=== PATIENT | female | born 1985 | race Caucasian/White ===

== ENCOUNTER → 2019-06-21 11:22 | Outpatient (BNVA) | payer SELFPAY | PROVIDERS: Visit Provider Obstetrics & Gynecology | DX: Z34.92 Encounter for supervision of normal pregnancy, unspecified, second trimester (principal) | CPT/HCPCS: 80307; 81003; 85027; 86592; 86762; 86803; 86850; 86900; 87086; 87340 ==

== ENCOUNTER → 2019-07-10 08:56 | Outpatient (BNVA) | payer SELFPAY | PROVIDERS: Visit Provider Obstetrics & Gynecology | DX: O34.219 Maternal care for unspecified type scar from previous cesarean delivery (principal); O09.43 Supervision of pregnancy with grand multiparity, third trimester; Z3A.28 28 weeks gestation of pregnancy | CPT/HCPCS: 76805 ==

== ENCOUNTER → 2019-07-16 10:47 | Outpatient (BNVA) | payer SELFPAY | PROVIDERS: Visit Provider Obstetrics & Gynecology | DX: O09.43 Supervision of pregnancy with grand multiparity, third trimester (principal); O26.893 Other specified pregnancy related conditions, third trimester; Z3A.28 28 weeks gestation of pregnancy | CPT/HCPCS: 82950; 84315 ==

== ENCOUNTER → 2019-07-27 11:30 | Outpatient (BNVA) | payer SELFPAY | PROVIDERS: Visit Provider Obstetrics & Gynecology | DX: O09.43 Supervision of pregnancy with grand multiparity, third trimester (principal) | CPT/HCPCS: 81003; 87491; 87591 ==

== ENCOUNTER → 2019-08-09 15:21 | Outpatient (BNVA) | payer SELFPAY | PROVIDERS: Visit Provider Obstetrics & Gynecology | DX: Z34.90 Encounter for supervision of normal pregnancy, unspecified, unspecified trimester (principal) | CPT/HCPCS: 81003 ==

== ENCOUNTER → 2019-08-27 09:21 | Outpatient (BNVA) | payer SELFPAY | PROVIDERS: Visit Provider Obstetrics & Gynecology | DX: O09.43 Supervision of pregnancy with grand multiparity, third trimester (principal); O34.219 Maternal care for unspecified type scar from previous cesarean delivery; O26.893 Other specified pregnancy related conditions, third trimester; Z67.91 Unspecified blood type, Rh negative | CPT/HCPCS: 81000 ==

== ENCOUNTER → 2019-09-10 12:52 | Outpatient (BNVA) | payer SELFPAY | PROVIDERS: Visit Provider Obstetrics & Gynecology Female Pelvic Medicine and Reconstructive Surgery | DX: O09.43 Supervision of pregnancy with grand multiparity, third trimester (principal); O34.219 Maternal care for unspecified type scar from previous cesarean delivery; O26.893 Other specified pregnancy related conditions, third trimester; Z67.91 Unspecified blood type, Rh negative | CPT/HCPCS: 84315; 87081 ==

== ENCOUNTER → 2019-09-24 12:54 | Outpatient (BNVA) | payer SELFPAY | PROVIDERS: Visit Provider Obstetrics & Gynecology | DX: O09.43 Supervision of pregnancy with grand multiparity, third trimester (principal) | CPT/HCPCS: 81000 ==

== ENCOUNTER 2019-09-27 06:00 | Inpatient (IN) | payer SELFPAY ==
[2019-09-27] VITALS (28 sets, daily range): BP systolic 0–124; BP diastolic 0–81; PULSE 57–97; RESP 15–18; TEMP 36.4–36.7; O2SAT 96–100; BMI 45.3
[2019-09-27 06:20] LABS: Basophils % 0.3 %; Eosinophils # 0.1 10^3/uL (0.0-0.8); Eosinophils % 1.1 %; Hematocrit 37.6 % (37.0-47.0); Hemoglobin 12.5 g/dL (11.5-15.3); Lymphocytes # 1.5 10^3/uL (0.8-4.8); Lymphocytes % 23.2 %; Mean Corpuscular HGB Conc 33.2 g/dL (30.0-36.0); Mean Corpuscular Hemoglobin 30.2 pg (28.0-34.0); Mean Corpuscular Volume 90.8 fL (81-99); Mean Platelet Volume 9.6 fL (7.4-10.4); Monocytes # 0.6 10^3/uL (0.2-0.9); Monocytes % 8.6 %; Neutrophils # 4.4 10^3/uL (1.8-7.7); Neutrophils % 66.6 %; Nucleated Red Blood Cells % 0 %; Platelet Count 222 10^3/cmm (130-400); Red Blood Count 4.14 10^6/uL (4.1-5.3); Red Cell Distribution Width 13.5 % (12.1-15.1); White Blood Count 6.6 10^3/uL (4.0-10.0)
--- NOTE | 2019-09-27 07:14 | W.PM.OPSUD ---
Surgery/Procedure H&P Update DATE OF PROCEDURE: September 27, 2019 DATE H&P PERFORMED: 09/24/19 H&P UPDATE INFORMATION: I have reviewed H&P completed within last 30 days, I have examined patient prior to procedure, No changes to prior documentation and H&P is in [facility] EMR on date indicated PREOP DIAGNOSIS: Previous section, at 39-0/7 weeks gestation PLANNED PROCEDURE: Operation Date: 09/27/19 07:00 Proposed Procedures p Section Repeat 06142 Z34.90 Z98.891(Not Applicable) - Yunior Miranda MD
[2019-09-27] MEDS: famotidine 20 mg/2 mL INJ IVP (07:15)
[2019-09-27] MEDS: metoclopramide 5 mg/mL SDV 2 mL 10 MG IVP (07:15)
[2019-09-27] MEDS: citric acid-sodium citrate 30 mL UDC PO (07:15)
--- NOTE | 2019-09-27 07:29 | P.ANESASSM_ITS ---
Pre-Anesthetic Assessment Pre-Anesthetic Assessment: Height/Weight: Height 1.55 m Weight 108.862 kg Temp Pulse Resp BP 97.8 F 80 18 119/69 09/27/19 05:48 09/27/19 07:15 09/27/19 05:48 09/27/19 07:15 Preop Diagnosis: Previous section, at 39-0/7 weeks gestation Proposed Procedure: Operation Date: 09/27/19 07:00 Proposed Procedures p Section Repeat 91392 Z34.90 Z98.891(Not Applicable) - Yunior Miranda MD Was Beta Annabel taken within 24 hours: N/A Last intake: Intake Last Liquid Date 09/27/19 Last Liquid Time 04:00 Last Solid Date 09/26/19 Last Solid Time 22:00 Last Intake: 04:00 Social: Social History: No alcohol and No tobacco Exam: Pre-Anes Outpt Exam: alert, oriented x 3, clear to auscultation bilaterally and regular rate & rhythm Airway: Submandibular: WNL Cervical ROM: WNL MP: 2 Dentition: False Pulmonary: Pulmonary: None reported CV/HEM: CV/HEM: None reported : : None reported Hepatic: Hepatic: None reported GI: GI: None reported Metabolic: Metabolic: None reported Musc/skel: Musc/skel: None reported Neuropsych: Neuropsych: None reported Anesthetic Plan: ASA status: 2 Anesthesia: Anesthesia Evaluation, Eval. for regional block and Regional (specify below) (SAB) Risk of > 500 ml blood loss (7ml/kg in children): Yes, adequate IV access and fluids planned Meds/Allergies Current Medications: Current Medications Generic Name Dose Route Start Last Admin Trade Name Rikiq PRN Reason Stop Dose Admin Metoclopramide HCl 10 mg 09/27/19 05:49 09/27/19 07:15 Reglan IVP 09/28/19 05:49 10 mg Q5M PRN Administration Nausea unrelieved by Ken [facility] Anesthesia PFSH: Social History Smoking and tobacco status: never smoked Alcohol intake: never Substance/Drug Use: never Additional social history: Well balanced diet Female Reproductive History: Date of last menstrual period: 12/28/18 : 7 Data Anesthesia CBC & Chem 7: 04/23/20 06:07 Other Labs: Laboratory Results - last 48 hr 09/27/19 09/27/19 06:07 06:07 WBC 6.6 RBC 4.14 Hgb 12.5 Hct 37.6 MCV 90.8 MCH 30.2 MCHC 33.2 RDW 13.5 Plt Count 222 MPV 9.6 Neut % (Auto) 66.6 Lymph % (Auto) 23.2 [place] % (Auto) 8.6 Eos % (Auto) 1.1 Baso % (Auto) 0.3 Neut # (Auto) 4.4 Lymph # (Auto) 1.5 [place] # (Auto) 0.6 Eos # (Auto) 0.1 Baso # (Auto) 0.0 Nucleated RBC % (auto) 0 Nucleated RBCs # 0.0 Blood Type A Negative Rho(D) Type Negaive Cardiac Studies: No Data to Display
--- NOTE | 2019-09-27 09:14 | P.OP_ITS ---
Operative Report Date of procedure: September 27, 2019 Pre-op Diagnosis: 1. Prior section x3 2. at 39-0/7 weeks gestation 3. Grand multiparity 4. Late entry care at 25 weeks gestation 5. Maternal obesity Post-op Diagnosis: 1. Prior section x3 2. at 39-0/7 weeks gestation 3. Grand multiparity 4. Late entry care at 25 weeks gestation 5. Maternal obesity 6. Viable female infant Procedure Done: Repeat low transverse section Specimens removed/disposition: None Surgeon: Yunior Miranda Marketing Communications Coordinator: None Anesthesia: Other (Spinal) Estimated blood loss (mL): 600 IV fluids (mL): 800 Urine output (mL): 500 Complications: None Findings: 1. Viable female infant, cephalic presentation, weighing 8 pounds 0 ounces (3630 g) with a length of 20-1/2 inches and Apgars of 8 at 1 minute and 9 at 5 minutes. 2. Normal-appearing placenta with a true knot present in the cord. 3. Normal-appearing uterus, tubes, and ovaries. 4. Bladder was densely adherent high on the lower uterine segment. 5. Skin incision: 08:11. Uterine incision: 08:19. Delivery: 08:21. Brief History: Patient is a 34-year-old white female 7, para 4-0-2-4 with an LMP of 12/28/2018 and an EDC of 10/04/2019 based on LMP and consistent with a 28-week ultrasound, which placed her at 39-0/7 weeks gestation today. Patient has had 3 prior sections and was not considered a candidate. As a result, she was presenting for a repeat section. Procedure: Patient was taken to the operating room where spinal anesthesia was obtained. Patient was placed in a dorsal supine position with a leftward tilt. Due to the pannus, abdomen was taped, exposing the lower area of the abdomen. She was prepped and draped in the usual sterile fashion. Kelly catheter and sequential compression boots had been placed prior to starting the case. A Pfannenstiel skin incision was made with a knife through the patient's prior scar and carried down to the underlying fascia with the knife. Fascia was incised in the midline with the knife and extended laterally with Brownlee scissors. Superior aspect of the fascia was grasped with Juan Antonio clamps, elevated, and sharply dissected. The fascia was densely adherent to the underlying muscles. The inferior aspect of the fascia was grasped with Juan Antonio clamps, elevated, and sharply and bluntly dissected. The rectus muscles were in the midline. Peritoneum was sharply entered. Peritoneal incision was extended both superiorly and inferiorly with good visualization of the bladder. Bladder blade was inserted. The bladder was noted to be densely adherent high on the lower uterine segment. As a result, decision was made not to attempt a bladder flap. A transverse incision was made with the knife at the transition of the lower uterine segment to the main body of the uterus. Copious amounts of clear fluid was obtained upon entry into the uterine cavity. The infant was initially cephalic, but as the uterus contracted after rupturing membranes, the baby rotated into a transverse back down lie with the head to the maternal left. The head was identified by intrauterine palpation and brought back to the uterine incision, rotating the baby. The 's head was delivered and no nuchal cords were noted. The rest of the delivered atraumatically. Nose and mouth were suctioned with bulb suction. Cord was clamped and cut and the was handed off to Dr. Smith and the waiting nurses. 1 true knot was noted in the cord. Cord blood was obtained. Placenta was delivered via uterine massage. Patient received 20 units of Pitocin in the IV fluids. The uterus was exteriorized and cleared of clots and debris. The uterine incision was closed in a running locking fashion using 0 Vicryl suture. The incision was imbricated using 0 Vicryl suture in a horizontal mattress fashion. The incision was inspected and noted to be hemostatic. Posterior cul-de-sac was thoroughly irrigated and cleared of clots and blood. The uterus was returned to the abdomen. The uterine incision was irrigated and noted to be hemostatic. The gutters were cleared of clots and blood. The rectus muscles and peritoneum were reapproximated in the midline using interrupted stitches of 2-0 Vicryl suture. The muscle layer was irrigated and noted to be hemostatic. The fascia was reapproximated using 0 Vicryl suture in a running fashion. The subcutaneous layer was irrigated and brought to hemostasis using electrocautery. It was reapproximated using 3-0 plain suture in an interrupted fashion. Skin was reapproximated using 4-0 Vicryl suture in a subcuticular fashion. Steri-Strips were applied. Patient tolerated the procedures well. Sponge, needle, and instrument counts were correct. DRAINS: Kelly catheter POSTOPERATIVE STATUS: The patient was left to recover in satisfactory condition
[2019-09-27] MEDS: dextrose 5%-lactated ringers 1,000 ML 125 ML IV (14:31)
[2019-09-27] MEDS: lanolin oint 7 gm 1 APPLIC TOPICAL (14:31)
[2019-09-27] MEDS: ketorolac 30 mg/mL INJ IVP (14:32)
[2019-09-27] MEDS: nystatin powder 15 gm Btl 1 APPLIC TOPICAL (18:26)
[2019-09-27] MEDS: docusate sodium 100 mg Capsule PO (18:26)
[2019-09-28 04:00] VITALS: BP 112/69; PULSE 88; RESP 16; TEMP 36.8
[2019-09-28 06:40] LABS: Hematocrit 36.3 % (37.0-47.0); Hemoglobin 12.1 g/dL (11.5-15.3); Mean Corpuscular HGB Conc 33.3 g/dL (30.0-36.0); Mean Corpuscular Hemoglobin 30.9 pg (28.0-34.0); Mean Corpuscular Volume 92.6 fL (81-99); Mean Platelet Volume 9.4 fL (7.4-10.4); Platelet Count 197 10^3/cmm (130-400); Red Blood Count 3.92 10^6/uL (4.1-5.3); Red Cell Distribution Width 13.9 % (12.1-15.1); White Blood Count 7.5 10^3/uL (4.0-10.0)
--- NOTE | 2019-09-28 08:26 | PM.PN ---
Subjective Subjective: Interval history: Denies any problems or concerns at this time. States pain had been controlled yesterday, but hurting more today. Has not taken anything for pain other than the scheduled Motrin. Reports tolerating regular diet this morning. Reports passing flatus during the night. Denies problems with urination. Denies shortness of breath or chest pains. Denies lightheadedness or dizziness with ambulation. Requesting to go home today if possible. Vitals/I&O/Wt Last Vital Signs Temp 98.3 F 09/28/19 04:00 Pulse 88 09/28/19 04:00 Resp 16 09/28/19 04:00 BP 112/69 09/28/19 04:00 Pulse Ox 96 09/27/19 10:20 09/27/19 09/28/19 09/28/19 22:59 06:59 14:59 Intake Total 2400 / 3250 Output Total 900 / 2700 900 / 3600 Balance 1500 / 550 -900 / -350 Weight last 48 hrs Weight 240 lb Physical Exam Const: COMMON NORMALS: no apparent distress, average body habitus, alert and well nourished GENERAL APPEARANCE: well developed ORIENTATION/CONSCIOUSNESS: Yes oriented to person, Yes oriented to place and Yes oriented to time Resp: COMMON NORMALS: normal respiratory effort and clear to auscultation bilaterally AUSCULTATION: clear to auscultation bilaterally Cardio: COMMON NORMALS: regular rate, regular rhythm, no gallops, no murmurs and no rub RATE: regular rate RHYTHM: regular rhythm PERIPHERAL PULSES: posterior tibial pulses present GI: COMMON NORMALS: soft to palpation, no hepatosplenomegaly and no masses (Except for mildly tender uterus, approximately 2 fingerbreadths below the umbilicus.) AUSCULTATION: Yes normoactive bowel sounds PALPATION: Yes soft, Yes tender (Lower abdomen), Yes no hepatosplenomegaly and No hernia : EXTERNAL FEMALE EXAM: No hernia Extremity: COMMON NORMALS: no calf tenderness NARRATIVE EXTREMITY EXAM: Varicose veins present of the legs. Trace to 1+ lower extremity edema. Neuro: SENSORIUM/ORIENTATION: Yes alert, Yes oriented to person, Yes oriented to place and Yes oriented to time Psych: COMMON NORMALS: affect normal MOOD & AFFECT: Yes euthymic mood Skin: NARRATIVE SKIN EXAM: Erythema of the skin consistent with yeast under the pannus. Urinary Catheter Management^: Kelly Latex: Cath Placed During This Visit: yes Reason for Continuing Indwelling Catheter: Perioperative Use in Selected Surgeries Urinary Catheter Date of Insertion: 09/27/19 Urinary Catheter Time of Insertion: 08:05 Data : 09/28/19 06:20 A&P Assessment and plan (1) Previous delivery, delivered: Postoperative day 1, status post repeat section. He had had 3 prior sections and was not considered a candidate. Increase activities today. Patient may shower. Kelly catheter has been removed. IV has been converted to a PIID. Pain medication use discussed with patient. Discussed that if necessary she should take the pain medication. Importance of being up and moving discussed. Discussed with patient the potential of going home this afternoon depending upon how she does through the morning. Discharge instructions were discussed with her. Questions were answered. Will reassess this afternoon for possible discharge. Status: Acute (2) Rh negative, delivered, current hospitalization: Baby was A negative. Patient does not need RhoGam. Status: Acute (3) Skin yeast infection: Patient had a yeast infection of the skin under her pannus noted at admission. She has been started on Nystatin powder, to be applied to the area twice a day. Status: Acute Attestations Medical Necessity Statement*: This is her first day after repeat section. Coding Level of Care Code Acute I O Psychologist for [place] Fwd Diagnoses Previous delivery, delivered O34.219 Rh negative, delivered, current hospitalization O26.899; Z67.91 Skin yeast infection B37.2
[2019-09-28] MEDS: nystatin powder 15 gm Btl 1 APPLIC TOPICAL (08:59)
[2019-09-28] MEDS: docusate sodium 100 mg Capsule PO (08:59)
[2019-09-28 10:05] VITALS: BP 105/69; PULSE 86; RESP 16; TEMP 36.8
--- NOTE | 2019-09-28 14:27 | P.DS_ITS ---
Discharge Providers Date of Admission: 09/27/19 06:00 Date of Discharge: September 28, 2019 Attending Provider at Admission: Yunior Miranda MD Attending Provider at Discharge: Yunior Miranda MD Diagnoses at Discharge Discharge Diagnosis (1) Previous delivery, delivered: Status: Acute (2) Rh negative, delivered, current hospitalization: Status: Acute (3) Skin yeast infection: Status: Acute Reason for Visit Reason for Visit: Reason For Visit: Currenty history of c section Hospital Course Hospital Course: Patient is a 34-year-old white female 7, now para 5-0-2-5 with an LMP of 12/28/2018 and an EDC of 10/04/2019 based on LMP and consistent with a 28-week ultrasound, which placed her at 39-0/7 weeks gestation at the time of admission. Patient was admitted for a repeat section due to having had 3 prior sections. She was not considered a candidate. She delivered a viable female weighing 8 lbs 0 oz (3630 g) with a length of 20-1/2 inches and Apgars of 8 at 1 minute and 9 at 5 minutes. She did well following the surgery. She received Duramorph in the spinal and was started on scheduled Toradol and then switch to ibuprofen. On postoperative day 1, she reported doing well. She stated that her pain is been well controlled the previous day. She had been started on ibuprofen last night and feels like it is adequately controlling her pain. She had not used any of the narcotic pain medication and was not requesting any. She was ambulating without lightheadedness or dizziness. She was tolerating a regular diet without nausea or vomiting. She denied any shortness of breath or chest pains. She was urinating without difficulty. She was requesting to go home. She did well during the morning and early afternoon and was then discharged to home. Written instructions were provided. She was to follow-up in the office in 2 and 6 weeks following the surgery. She had also been noted to have yeast infection of the skin under her pannus noted when she had her section. She was started on topical nystatin and was to continue this after going home. Physical Exam Urinary Catheter Management^: Kelly Latex: Cath Placed During This Visit: yes Reason for Continuing Indwelling Catheter: Perioperative Use in Selected Surgeries Urinary Catheter Date of Insertion: 09/27/19 Urinary Catheter Time of Insertion: 08:05 Discharge Data Data Completed and Pending: Labs from last 24 hours 09/28/19 06:20 WBC 7.5 RBC 3.92 L Hgb 12.1 Hct 36.3 L MCV 92.6 MCH 30.9 MCHC 33.3 RDW 13.9 Plt Count 197 MPV 9.4 Vitals: Last Vital Signs Temp 98.2 F 09/28/19 10:05 Pulse 86 09/28/19 10:05 Resp 16 09/28/19 10:05 BP 105/69 09/28/19 10:05 Pulse Ox 96 09/27/19 10:20 Discharge Plan Discharge Patient Disposition: Home, Self-Care Condition: Stable Prescriptions: New Nyamyc 100,000 unit/gram Powder 1 applic topical BID Qty: 30 RF: 0 Continued prenat.vits,freddie,[id number]-qqqrb Tablet 1 tab PO DAILY RF: 0 calcium carbonate 600 mg PO PRN RF: 0 Discontinued ferrous sulfate 325 mg PO BID RF: 0 Discharge Orders: Discharge Order (Routine); Ordered 09/28/19 Ordered By: Yunior Miranda Referrals: Yunior Miranda MD [Physician] - 2 weeks (Please call [facility] on Tuesday October 01, 2019 first thing in the morning, at [phone] to schedule your 2 week incision check appointment and your [address] Miranda.) Discharge Diet: Regular Discharge Activity: Limit activity as instructed Patient Instructions: Iron Supplements (By mouth), Vitamins (By mouth), Multivitamins with Minerals (By mouth), OB [facility], OB Discharge Report, OB Food/Drug Interaction Guide, OB Care at Home, OB Home Care, OB [facility] Parent Packet Discharge Attestations Time Spent in Discharge Care*: less than 30 min Quality Metrics Clinical Quality Measures During this hospital stay, did patient experience: None Coding Level of Care Code Acute Mushroom Packer for Chg Fwd Diagnoses Previous delivery, delivered O34.219 Rh negative, delivered, current hospitalization O26.899; Z67.91 Skin yeast infection B37.2
[2019-09-28 14:54] VITALS: BP 110/74; PULSE 80; RESP 16; TEMP 36.6
== END 2019-09-28 15:50 | disposition home or self-care (01) | DRG 787 ==
LOC: OPOB 08:14
PROVIDERS: Admitting Provider Obstetrics & Gynecology; Visit Provider Obstetrics & Gynecology
PROC: 10D00Z1 Extraction of Products of Conception, Low, Open Approach (ICD-10-PCS; CPT 59514; principal; 2019-09-27 07:00)
DX: O34.211 Maternal care for low transverse scar from previous cesarean delivery (principal); O98.82 Other maternal infectious and parasitic diseases complicating childbirth; N85.8 Other specified noninflammatory disorders of uterus; Z3A.39 39 weeks gestation of pregnancy; Z37.0 Single live birth; B37.2 Candidiasis of skin and nail; O99.214 Obesity complicating childbirth; O69.81X0 Labor and delivery complicated by cord around neck, without compression, not applicable or unspecified
CPT/HCPCS: 12345; 36415; 59025; 85025; 85027; 86900; 96375; J0690; J1885; J2274; J2405; J2590; J2765; J3490; J7030

== ENCOUNTER → 2020-09-23 09:05 | Outpatient (BNVA) | payer SELFPAY | PROVIDERS: Visit Provider Obstetrics & Gynecology | DX: Z32.00 Encounter for pregnancy test, result unknown (principal) | CPT/HCPCS: 81025 ==

== ENCOUNTER → 2020-09-30 14:53 | Outpatient (BNVA) | payer SELFPAY | PROVIDERS: Visit Provider Obstetrics & Gynecology | DX: O09.32 Supervision of pregnancy with insufficient antenatal care, second trimester; Z3A.00 Weeks of gestation of pregnancy not specified | CPT/HCPCS: 80307; 81000; 82950; 85027; 86592; 86762; 86803; 86850; 86900; 87086; 87340; 87491; 87591; 88175 ==

== ENCOUNTER → 2020-10-08 13:06 | Outpatient (BNVA) | payer SELFPAY | PROVIDERS: Visit Provider Obstetrics & Gynecology | DX: Z34.92 Encounter for supervision of normal pregnancy, unspecified, second trimester (principal) | CPT/HCPCS: 76805 ==

== ENCOUNTER → 2020-10-27 08:08 | Outpatient (BNVA) | payer SELFPAY | PROVIDERS: Visit Provider Obstetrics & Gynecology | DX: O09.43 Supervision of pregnancy with grand multiparity, third trimester (principal) | CPT/HCPCS: 84315; 85027; 86850 ==

== ENCOUNTER → 2020-11-10 08:56 | Outpatient (BNVA) | payer SELFPAY | PROVIDERS: Visit Provider Obstetrics & Gynecology | DX: O09.43 Supervision of pregnancy with grand multiparity, third trimester (principal); Z3A.00 Weeks of gestation of pregnancy not specified | CPT/HCPCS: 81000 ==

== ENCOUNTER → 2020-11-24 09:28 | Outpatient (BNVA) | payer SELFPAY | PROVIDERS: Visit Provider Obstetrics & Gynecology | DX: O09.43 Supervision of pregnancy with grand multiparity, third trimester (principal); Z3A.00 Weeks of gestation of pregnancy not specified | CPT/HCPCS: 81000 ==

== ENCOUNTER → 2020-12-10 11:21 | Outpatient (BNVA) | payer SELFPAY | PROVIDERS: Visit Provider Nurse Practitioner Women's Health | DX: O09.43 Supervision of pregnancy with grand multiparity, third trimester (principal); Z67.91 Unspecified blood type, Rh negative; O34.219 Maternal care for unspecified type scar from previous cesarean delivery; Z3A.00 Weeks of gestation of pregnancy not specified | CPT/HCPCS: 81000 ==

== ENCOUNTER → 2020-12-22 08:59 | Outpatient (BNVA) | payer SELFPAY | PROVIDERS: Visit Provider Obstetrics & Gynecology | DX: O09.43 Supervision of pregnancy with grand multiparity, third trimester (principal); O34.219 Maternal care for unspecified type scar from previous cesarean delivery; Z3A.00 Weeks of gestation of pregnancy not specified; Z67.91 Unspecified blood type, Rh negative | CPT/HCPCS: 81000; 87081 ==

== ENCOUNTER → 2020-12-31 10:59 | Outpatient (BNVA) | payer SELFPAY | PROVIDERS: Visit Provider Nurse Practitioner Women's Health | DX: O09.43 Supervision of pregnancy with grand multiparity, third trimester (principal); Z3A.00 Weeks of gestation of pregnancy not specified | CPT/HCPCS: 81000 ==

== ENCOUNTER → 2021-01-05 08:46 | Outpatient (BNVA) | payer SELFPAY | PROVIDERS: Visit Provider Obstetrics & Gynecology | DX: O09.43 Supervision of pregnancy with grand multiparity, third trimester (principal); Z3A.00 Weeks of gestation of pregnancy not specified | CPT/HCPCS: 81000 ==

== ENCOUNTER 2021-01-12 05:19 | Inpatient (IN) | payer SELFPAY ==
--- NOTE | 2020-12-31 14:07 | ANES.PREANE2 ---
Pre-Anesthetic Assessment Pre-Anesthetic Assessment: Height/Weight: Height 1.55 m Preop Diagnosis: Previous section, at 39-0/7 weeks gestation Proposed Procedure: Operation Date: 01/12/21 07:00 Proposed Procedures p Section Repeat 45948 O34.219 O09.43(Not Applicable) - Vaughn Honeycutt MD Was Beta Annabel taken within 24 hours: N/A Was Clonidine taken within 24 hours: N/A Social: Social History: No alcohol and No tobacco Exam: Pre-Anes Outpt Exam: alert, oriented x 3, clear to auscultation bilaterally and regular rate & rhythm Airway: Submandibular: WNL Cervical ROM: WNL MP: 2 Dentition: False History/ROS: No significant history except as noted Anesthetic Plan: ASA status: 2 Anesthesia: Regional (specify below) (SAB) Risk of > 500 ml blood loss (7ml/kg in children): No PFSH Anesthesia PFSH: Medical History No active medical problems Surgical History S/P section (12/24/15) [place]formed [place] (12/03/16) [place]formed [place] S[place] section (06/21/18) Performed in [place] S/P section (09/27/19) RLTCS. Performed by Dr. Miranda at [facility] in [place], [place]. Family History Grandfather Heart disease paternal Denies family history of Colon cancer Ovarian cancer Diabetes Clotting disorder Hyperlipidemia Breast cancer Anesthesia complication Bleeding disorder Hypertension Uterine cancer Thyroid condition Stroke Social History Smoking and tobacco status: never smoked Alcohol intake: never Female Reproductive History: Date of last menstrual period: 12/28/18 Data Anesthesia Cardiac Studies: No Data to Display
[2021-01-12] VITALS (24 sets, daily range): BP systolic 97–116; BP diastolic 58–75; PULSE 58–80; RESP 12–18; TEMP 36.2–36.8; O2SAT 96–100; BMI 46.8
[2021-01-12] MEDS: lactated ringers 1,000 ML 999 ML IV (06:04)
[2021-01-12 06:14] LABS: Basophils % 0.4 %; Eosinophils # 0.2 10^3/uL (0.0-0.8); Hematocrit 37.7 % (37.0-47.0); Hemoglobin 12.3 g/dL (11.5-15.3); Lymphocytes # 1.7 10^3/uL (0.8-4.8); Lymphocytes % 24.4 %; Mean Corpuscular HGB Conc 32.6 g/dL (30.0-36.0); Mean Corpuscular Hemoglobin 30.2 pg (28.0-34.0); Mean Corpuscular Volume 92.6 fL (81-99); Monocytes # 0.6 10^3/uL (0.2-0.9); Monocytes % 7.7 %; Neutrophils # 4.56 10^3/uL (1.8-7.7); Neutrophils % 64.2 %; Nucleated Red Blood Cells % 0 %; Platelet Count 195 10^3/cmm (130-400); Red Blood Count 4.07 10^6/uL (4.1-5.3); Red Cell Distribution Width 13.4 % (12.1-15.1); White Blood Count 7.1 10^3/uL (4.0-10.0)
[2021-01-12 06:22] LABS: Amphetamines Screen Urine Negative (Negative); Barbiturates Screen Urine Negative (Negative); Benzodiazepines Screen Urine Negative (Negative); Cocaine Screen Urine Negative (Negative); Opiate Screen Urine Negative (Negative); PCP Screen Urine Negative (Negative); THC Screen Urine Negative (Negative)
[2021-01-12 06:31] LABS: Anion Gap 16.2 (5-19); Blood Urea Nitrogen 5 mg/dL (6-20); Calcium 8.5 mg/dL (8.5-10.5); Carbon Dioxide 22 mmol/L (22-29); Chloride 106 mmol/L (98-107); Glomerular Filtration Rate 256.2 mL/min (90-130); Glucose 82 mg/dL (65-115); Osmolality Calculated 286 mOsm/kg (285-295); Potassium 4.2 mmol/L (3.5-5.1); Sodium 140 mmol/L (136-145)
--- NOTE | 2021-01-12 06:45 | P.ANESUD_ITS ---
Pre-Anesthetic Update Pre-Anesthetic Assessment: Date of Surgery/Procedure: 01/12/21 Preop Corry gnosis: Previous section, at 39-0/7 weeks gestation Proposed Procedure: Operation Date: 01/12/21 07:00 Proposed Procedures p Section Repeat 17677 O34.219 O09.43(Not Applicable) - Vaughn Honeycutt MD Any changes to Pre-Anesthetic Assessment?: No Last Intake: Intake Last Liquid Date 01/12/21 Last Liquid Time 00:00 Last Solid Date 01/11/21 Last Solid Time 18:00 Labs Last 48hrs: Laboratory Results - last 48 hr 01/12/21 01/12/21 01/12/21 05:50 05:50 05:50 WBC 7.1 RBC 4.07 L Hgb 12.3 Hct 37.7 MCV 92.6 MCH 30.2 MCHC 32.6 RDW 13.4 Plt Count 195 MPV 10.0 Neut % (Auto) 64.2 Lymph % (Auto) 24.4 [place] % (Auto) 7.7 Eos % (Auto) 3.0 Baso % (Auto) 0.4 Neut # (Auto) 4.56 Lymph # (Auto) 1.7 [place] # (Auto) 0.6 Eos # (Auto) 0.2 Baso # (Auto) 0.0 Nucleated RBC % (a uto) 0 Nucleated RBCs # 0.0 Sodium 140 Potassium 4.2 Chloride 106 Carbon Dioxide 22 Anion Gap 16.2 BUN 5 L Creatinine 0.3 L GFR Calculation 256.2 H Glucose 82 Calculated Osmolal ity 286 Calcium 8.5 Urine Opiates Scre en Ur Barbiturates Sc reen Ur Phencyclidine S crn Ur Amphetamines Sc reen U Benzodiazepines Scrn Urine Cocaine Scre en U Marijuana (THC) Screen Blood Type A Negative Rho(D) Type Negative / 0 01/12/21 05:50 WBC RBC Hgb Hct MCV MCH MCHC RDW Plt Count MPV Neut % (Auto) Lymph % (Auto) [place] % (Auto) Eos % (Auto) Baso % (Auto) Neut # (Auto) Lymph # (Auto) [place] # (Auto) Eos # (Auto) Baso # (Auto) Nucleated RBC % (a uto) Nucleated RBCs # Sodium Potassium Chloride Carbon Dioxide Anion Gap BUN Creatinine GFR Calculation Glucose Calculated Osmolal ity Calcium Urine Opiates Scre en Negative Ur Barbiturates Sc reen Negative Ur Phencyclidine S crn Negative Ur Amphetamines Sc reen Negative U Benzodiazepines Scrn Negative Urine Cocaine Scre en Negative U Marijuana (THC) Screen Negative Blood Type Rho(D) Type Vitals: Temperature 97.2 F L 01/12/21 06:56 Pulse Rate 80 01/12/21 06:51 Pulse Rhythm 01/12/21 05:31 Pulse Strength 3+ Normal 01/12/21 05:31 Respiratory Effort Non-Labored 01/12/21 05:31 Respiratory Depth Normal 01/12/21 05:31 Respiratory Patter n 01/12/21 05:31 Blood Pressure 101/65 01/12/21 06:51 Oxygen Delivery Me thod 01/12/21 05:31 Exam: Pre-Anes Outpt Exam: alert, oriented x 3, clear to auscultation bilaterally and regular rate & rhythm Cardiac Studies: No Data to Display
[2021-01-12] MEDS: lactated ringers 1,000 ML 125 ML IV (06:52)
[2021-01-12] MEDS: metoclopramide 5 mg/mL SDV 2 mL 10 MG IVP (06:53)
[2021-01-12] MEDS: citric acid-sodium citrate 30 mL UDC PO (06:53)
[2021-01-12] MEDS: famotidine 20 mg/2 mL INJ IVP (06:53)
--- NOTE | 2021-01-12 08:50 | PM.OP ---
Operative Report Date of procedure: January 12, 2021 Pre-op Diagnosis: Previous section, at 39-0/7 weeks gestation Post-op diagnosis: same Procedure Done: Repeat low transverse delivery Specimens removed/disposition: Cord blood sample Surgeon: Vaughn Honeycutt MD Anesthesia: Nerve Block (Spinal) Estimated blood loss (mL): 800 IV fluids (mL): 1,000 Urine output (mL): 600 Complications: None Condition: stable Disposition: floor Brief History: 35-year-old female with an estimated stational age at 39 weeks and previous delivery x4 Procedure: After assuring informed consent, the patient was taken to the operating room and anesthesia was initiated. She was placed in the dorsal supine position with a left lateral tilt. The abdomen was prepped and draped in the usual sterile manner. A time-out procedure was performed. A Pfannenstiel skin incision was made with the scalpel and carried through to the underlying layer of fascia with the Bovie. The fascia was nicked in the midline and the incision extended laterally with the Brownlee scissors. The superior aspect of the fascial incision was then grasped with Juan Antonio clamps and elevated and the underlying rectus muscle dissected off bluntly and sharp with brownlee scissors dense adhesions. Attention was then turned to the inferior aspect of the incision which, in similar fashion, was grasped and tented up with Juan Antonio clamps and the rectus muscle dissected bluntly. The rectus muscles were then in the midline and the peritoneum identified, tented up and entered sharply with Metzenbaum scissors. The peritoneal incision was then extended superiorly and inferiorly with good visualization of the bladder. The Anatoliy O retractor was then inserted and the vesicouterine peritoneum identified, grasped with pickups and entered sharply with Metzenbaum scissors. This incision was then extended laterally and the bladder flap created digitally. The uterus incised in a low transverse fashion with the scalpel. The uterine incision was then extended with the bandage scissors. The was then delivered in the breech presentation atraumatically in usual manner. The nose and the mouth were suctioned with bulb and the cord clamped and cut. The cord was normal and had three vessels. Amniotic fluid was clear. The placenta was then removed manually and the uterus exteriorized and cleared of all clots and debris. The uterine incision was repaired with 0 Vicryl in a running-locked fashion. A second layer of the same suture was used to obtain excellent hemostasis. The gutters were cleared of all clots. Excellent hemostasis was noted. The uterus was then returned to the abdomen. The rectus muscles were approximated with 3-0 chromic gut. The Exparel infiltration at the incision site was administered for pain management. The fascia was reapproximated with 0 Vicryl in an interrupted running fashion. The skin was closed with Insorb?s subcuticular absorbable yazmin. The patient tolerated the procedure well. The sponge, lap and needle counts were correct times three. This documentation was created by [employer] automobile wrecker software (known for inherent automobile wrecker error). Every effort was made to assure accuracy of automobile wrecker. Any obvious errors or omissions should be clarified with the author of the document.
--- NOTE | 2021-01-12 12:51 | ANE.PACU2 ---
Inpatient post-anesthesia follow up: Airway intact: Yes Vital signs: Temperature 98.2 F Pulse Rate 68 Respiratory Rate 16 Blood Pressure 102/60 Pulse Oximetry 100 Oxygen Delivery Me thod Room Air Oxygen Flow Rate Fraction of Inspir ed Oxygen Hydration adequate: Yes Nausea and vomiting: No Pain level: 2 Mental status: Baseline
[2021-01-12] MEDS: dextrose 5%-lactated ringers 1,000 ML 125 ML IV (13:37)
--- NOTE | 2021-01-12 15:50 | PC.NURSE ---
At this time, patient up to chair. Minimal assistance required. Patient tolerated well.
--- NOTE | 2021-01-12 18:00 | PC.NURSE ---
Patient back to bed. Patient stated she got dizzy while transferring back to bed. Patient resting and drinking broth at this time.
[2021-01-12 21:05] LABS: Hematocrit 33.8 % (37.0-47.0); Hemoglobin 11.1 g/dL (11.5-15.3); Mean Corpuscular HGB Conc 32.8 g/dL (30.0-36.0); Mean Corpuscular Hemoglobin 30.2 pg (28.0-34.0); Mean Corpuscular Volume 91.8 fL (81-99); Mean Platelet Volume 9.8 fL (7.4-10.4); Platelet Count 189 10^3/cmm (130-400); Red Blood Count 3.68 10^6/uL (4.1-5.3); Red Cell Distribution Width 13.4 % (12.1-15.1); White Blood Count 8.3 10^3/uL (4.0-10.0)
[2021-01-13 04:32] VITALS: BP 103/64; PULSE 85; RESP 16; O2SAT 96
[2021-01-13] MEDS: prenatal vitamin Capsule 1 CAP PO (08:56)
[2021-01-13] MEDS: ferrous sulfate EC 325 mg Tablet PO (08:58)
[2021-01-13] MEDS: docusate sodium 100 mg Capsule PO ×2 (08:58→18:07)
[2021-01-13 10:33] VITALS: BP 108/71; PULSE 77; RESP 16; TEMP 36.7; O2SAT 96
[2021-01-13] MEDS: nystatin powder 15 gm Btl 1 APPLIC TOPICAL ×2 (10:37→18:07)
--- NOTE | 2021-01-13 16:25 | PM.PN ---
Subjective Subjective: Interval history: Mrs. Hernandez is status post repeat delivery Refers she is feeling fine Vitals/I&O/Wt Last Vital Signs Temp 98.0 F 01/13/21 10:33 Pulse 77 01/13/21 10:33 Resp 16 01/13/21 10:33 BP 108/71 01/13/21 10:33 Pulse Ox 96 01/13/21 10:33 01/13/21 01/13/21 01/13/21 06:59 14:59 22:59 Intake Total 1000 / 1000 Output Total 1800 / 5650 1950 / 1950 Balance -1800 / -3650 -950 / -950 Weight last 48 hrs Weight 108.862 kg Physical Exam Narrative: EXAM NARRATIVE: GA; alert and oriented x 3 HEENT: normal Breasts: engorged Nipples - skin intact Lungs; clear to auscultation Heart: regular rhythm, no murmurs. Abd: Appropriately tender. BS+. Uterine fundus below umbilicus. No Fundal Tenderness. minimal tenderness, incision clean and dry, no redness, pain or edema Perineum: normal lochia. Extremities: no edema, no cyanosis, no tenderness. Urinary Catheter Management^: Kelly: Cath Placed During This Visit: yes, but has since been removed by the nurse Reason for Continuing Indwelling Catheter: Decision to DC Catheter Urinary Catheter Date of Insertion: 01/12/21 Urinary Catheter Time of Insertion: 07:40 Date Urinary Catheter Removed: 01/13/21 Time Urinary Catheter Discontinued: 04:20 Data : 01/12/21 20:55 01/12/21 05:50 A&P Assessment and plan (1) Status post delivery: Mrs. Rosen 35-year-old female is status post delivery postoperative day 1. she is afebrile and hemodynamically stable. Tolerating diet well. Ambulating without difficulty. And not taking any pain medication to control pain. Status: Acute Attestations Medical Necessity Statement*: In my professional opinion per admitting diagnosis Coding Level of Care Code Acute Munitions Worker for Chg Fwd Diagnoses Status post delivery Z98.891
[2021-01-13 17:38] VITALS: BP 104/69; PULSE 78; RESP 18; TEMP 37; O2SAT 97
[2021-01-13] MEDS: acetaminophen 325 mg Tablet 650 MG PO (18:07)
[2021-01-13 18:39] VITALS: BP 104/69; PULSE 78; RESP 18; TEMP 37; O2SAT 97
[2021-01-13] MEDS: ibuprofen 800 mg tablet PO (20:53)
[2021-01-13 21:40] VITALS: BP 106/68; PULSE 76; RESP 16; O2SAT 96
[2021-01-14 04:00] VITALS: BP 107/69; PULSE 76
[2021-01-14] MEDS: nystatin powder 15 gm Btl 1 APPLIC TOPICAL (09:49)
[2021-01-14] MEDS: prenatal vitamin Capsule 1 CAP PO (09:49)
[2021-01-14] MEDS: ibuprofen 800 mg tablet PO (09:49)
[2021-01-14] MEDS: ferrous sulfate EC 325 mg Tablet PO (09:49)
[2021-01-14] MEDS: docusate sodium 100 mg Capsule PO (09:49)
--- NOTE | 2021-01-14 12:48 | PM.OBGYDC ---
Discharge Providers GLAZIER APPRENTICE Date of Admission: 01/12/21 05:19 Date of Discharge: 01/14/21 Attending Provider at Admission: Vaughn Honeycutt MD Attending Provider at Discharge: Vaughn Honeycutt MD Diagnoses at Discharge Discharge Diagnosis (1) Status post delivery: Status: Acute Reason for Visit Reason for Visit: repeat csection Hospital Course Hospital Course Ms. Rosen is a 35 y/o with an LMP of 04/14/2020 and an EDC of 01/19/2021. Admitted for a planned repeat delivery at 39 weeks. delivery was performed without complications. Postoperative day 2, she is afebrile and hemodynamically stable. Tolerating diet well. Ambulating without difficulty. Information Peripartum Data: Infant Delivery Method: Physical Exam Narrative: EXAM NARRATIVE: EXAM NARRATIVE: GA; alert and oriented x 3 HEENT: normal Breasts: engorged Nipples - skin intact Lungs; clear to auscultation Heart: regular rhythm, no murmurs. Abd: Appropriately tender. BS+. Uterine fundus below umbilicus. No Fundal Tenderness. minimal tenderness, incision clean and dry, no redness, pain or edema Perineum: normal lochia. Extremities: no edema, no cyanosis, no tenderness. Urinary Catheter Management^: Kelly: Cath Placed During This Visit: yes, but has since been removed by the nurse Reason for Continuing Indwelling Catheter: Decision to DC Catheter Urinary Catheter Date of Insertion: 01/12/21 Urinary Catheter Time of Insertion: 07:40 Date Urinary Catheter Removed: 01/13/21 Time Urinary Catheter Discontinued: 04:20 Discharge Data Data Completed and Pending: Labs from last 24 hours 01/12/21 20:55 Blood Type A Negative Rho(D) Type Negative / 0 Antibody Screen Negative Screen Cancelled Vitals: Last Vital Signs Temp 98.6 F 01/13/21 18:39 Pulse 76 01/14/21 04:00 Resp 16 01/13/21 21:40 BP 107/69 01/14/21 04:00 Pulse Ox 96 01/13/21 21:40 Discharge Plan Discharge Patient Disposition: Home Condition: Stable Prescriptions: New ibuprofen 800 mg tablet 800 mg PO TID PRN (Reason: pain) Qty: 60 RF: 0 acetaminophen 325 mg capsule 325 mg PO Q4H PRN (Reason: fever or pain) Qty: 60 RF: 0 Continued prenat.vits,freddie,wdy-zlik-rtlis Tablet 1 tab PO DAILY RF: 0 Discharge Orders: Discharge Order (Routine); Ordered 01/14/21 Ordered By: Vaughn Honeycutt Referrals: Vaughn Honeycutt MD [Physician] - 01/26/21 10:45 am (Your 2 week appointment has been scheduled for 01/26/2021 at 10:45 am. Your 6 week appointment has been scheduled for 02/23/2021 at 9:[address] Honeycutt.) Discharge Diet: Usual diet Discharge Activity: Increase activity as tolerated Patient Instructions: , Section (DC), Breast Care for the Breast Feeding Mother (DC), OB Discharge Report, OB Food/Drug Interaction Guide, Opioid Safety, OB Proud Parent Packet Activity Restrictions/Additional Instructions: 1. Please call [facility] clinic on next working day to make your post-operative appointment in 2 weeks. 2. Please stay home until you come back to the clinic on first post-operative check up. 3. Please follow instructions on your medications CAREFULLY. 4. If you have abdominal incision, do not cover it unless dressing is necessary because of drainage. OK to shower, but avoid bath. Leave steri-strips until they fall off. If they are still on one week after surgery, you may remove them. 5. If you had vaginal surgery or vaginal repair, Dr. Honeycutt may instruct you to take SITZ bath. 6. Yellow, blood tinged odorous vaginal discharge is usually normal after hysterectomy or vaginal surgeries. 7. No sexual intercourse, tampons, or douches until you are completely released from the post-operative care. 8. Avoid constipation by eating right and maybe using some Metamucil or Milk of Magnesia. 9. All prescription refills are given during the working hours. Please do no wait till it runs out. Call the clinic at [phone] before your medication runs out. The clinic will get in touch with your doctor to prescribe medications if necessary. 10. Please remain within 40 mile radius from our hospital because emergencies do happen now and then during the post-operative period. 11. If you have stairs at home, take one step at a time slowly and minimize the number of trips. It helps to stay in one floor for the next few days. No lifting except what you can lift by one hand until you are released from the post-operative care. 12. Driving is discouraged until you are well healed. It may be 3-4 weeks before you feel strong enough to drive. You should be able to turn and look through the rear window without pain and you should be able to push the brake pedal very hard without pain before you drive. No fast rules, but SAFETY should be your primary concern. DO NOT drive if you are on sedating medications such as narcotics. 13. Call the clinic (during working hours) to make urgent appointment or go to the Emergency room, if any of the following occurs: i. Vaginal bleeding becomes heavy, more than a period. ii. Incision becomes red and sore, or drains pus. iii. Your temperature is over 100.4 or you have chill. iv. IV site becomes red and swollen (a little ``knot?? is usually OK) v. Persistent nausea and vomiting vi. Persistent constipation or diarrhea vii. Rash or allergic reaction to medications. Discharge Attestations GLAZIER APPRENTICE Time Spent in Discharge Care*: greater than 30 min Coding Level of Care Code Acute Accounting System Expert for Chg Fwd Diagnoses Status post delivery Z98.891
[2021-01-14 15:00] VITALS: BP 105/78; PULSE 73; RESP 16; TEMP 36.7
== END 2021-01-14 15:35 | disposition home or self-care (01) | DRG 788 ==
PROVIDERS: Admitting Provider Obstetrics & Gynecology; Visit Provider Obstetrics & Gynecology
PROC: 10D00Z1 Extraction of Products of Conception, Low, Open Approach (ICD-10-PCS; CPT 59514; principal; 2021-01-12 07:00)
DX: O34.211 Maternal care for low transverse scar from previous cesarean delivery (principal); Z3A.39 39 weeks gestation of pregnancy; Z37.0 Single live birth
CPT/HCPCS: 36415; 51702; 59409; 80048; 80306; 85025; 85027; 85460; 86850; 86900; 90384; 96374; 96375; C9290; J0690; J2274; J2370; J2405; J2765; J3490

== ENCOUNTER → 2022-08-26 13:40 | Outpatient (BNVA) | payer SELFPAY | PROVIDERS: Visit Provider Nurse Practitioner Women's Health | DX: Z34.91 Encounter for supervision of normal pregnancy, unspecified, first trimester (principal); Z3A.12 12 weeks gestation of pregnancy | CPT/HCPCS: 76801; 81000; 81025 ==

== ENCOUNTER → 2022-08-31 13:00 | Outpatient (BNVA) | payer SELFPAY | PROVIDERS: Visit Provider Obstetrics & Gynecology | DX: O09.899 Supervision of other high risk pregnancies, unspecified trimester (principal) | CPT/HCPCS: 80307; 81000; 85027; 86592; 86762; 86803; 86850; 86900; 87086; 87340; 87491; 87591; 87624; 87661; 87806 ==

== ENCOUNTER → 2022-09-24 13:50 | Outpatient (BNVA) | payer SELFPAY | PROVIDERS: Visit Provider Obstetrics & Gynecology | DX: O09.899 Supervision of other high risk pregnancies, unspecified trimester (principal) | CPT/HCPCS: 81000 ==

== ENCOUNTER 2022-10-28 12:00 | Day surgery (SDC) | payer SELFPAY ==
--- NOTE | 2023-02-25 06:55 | ANES.PREANE2 ---
Pre-Anesthetic Assessment Height/Weight: Height 1.52 m Operation Date: 02/25/23 07:00 Proposed Procedures p Section Repeat [id number](Not Applicable) - John Rivera MD Familial anesthetic complications: none Was Beta Annabel taken within 24 hours: N/A Was Clonidine taken within 24 hours: N/A Last intake: > 8hrs Social No alcohol and No tobacco Exam alert, oriented x 3, clear to auscultation bilaterally and regular rate & rhythm Airway Mallampati: Class III Dentition: false Metabolic Morbid Obesity Anesthetic Plan ASA status: 3 Anesthesia: Regional (specify below) Risk of > 500 ml blood loss (7ml/kg in children): Yes, adequate IV access and fluids planned Medications/Allergies Home Medications Medication Instructions Recorded Confirmed Last Taken Type prenat.vits,freddie,pgj-ldxc-nwyki 1 tab PO DAILY 08/31/22 02/21/23 Unknown History Allergies Allergy/AdvReac Type Severity Reaction Status Date / Time No Known Allergies Allergy Verified 02/21/23 11:14 [facility] Anesthesia Medical History No active medical problems neghx: htn,dm,thyroid,dvt/pe PCP: none Surgical History History of delivery (~01/12/21) Repeat low transverse delivery at [place], [place] by Dr. Honeycutt. S/P section (12/24/15) Performed in [place] S/P section (12/03/16) Performed in [place] S/P section (06/21/18) Performed in [place], [place] S/P section (09/27/19) RLTCS. Performed by Dr. Miranda at [facility] in [place], [place]. Family History Grandfather Heart disease paternal Denies family history of Colon cancer Ovarian cancer Diabetes Clotting disorder Hyperlipidemia Breast cancer Anesthesia complication Bleeding disorder Hypertension Uterine cancer Thyroid condition Stroke Social History Substance/Drug Use: never Data Anesthesia Cardiac Studies: No Data to Display
== END 2022-10-28 23:00 | disposition home or self-care (01) ==
LOC: OR 05-04 08:32
PROVIDERS: PCP Obstetrics & Gynecology; Visit Provider Obstetrics & Gynecology
PROC: (CPT 59514; principal; 2023-02-25 07:00)
DX: Z01.818 Encounter for other preprocedural examination (principal)
CPT/HCPCS: 51702; 59025; 59409; J7030

== ENCOUNTER → 2022-10-28 14:18 | Outpatient (BNVA) | payer SELFPAY | PROVIDERS: Visit Provider Obstetrics & Gynecology | DX: O32.1XX0 Maternal care for breech presentation, not applicable or unspecified (principal); Z3A.21 21 weeks gestation of pregnancy | CPT/HCPCS: 76805 ==

== ENCOUNTER → 2022-10-29 13:02 | Outpatient (BNVA) | payer SELFPAY | PROVIDERS: Visit Provider Obstetrics & Gynecology | DX: O09.899 Supervision of other high risk pregnancies, unspecified trimester (principal) | CPT/HCPCS: 81000 ==

== ENCOUNTER → 2022-11-16 09:40 | Outpatient (BNVA) | payer SELFPAY | PROVIDERS: Visit Provider Nurse Practitioner Women's Health | DX: O09.899 Supervision of other high risk pregnancies, unspecified trimester (principal) | CPT/HCPCS: 81000; 82950 ==

== ENCOUNTER → 2022-12-14 07:49 | Outpatient (BNVA) | payer SELFPAY | PROVIDERS: Visit Provider Obstetrics & Gynecology | DX: O09.899 Supervision of other high risk pregnancies, unspecified trimester (principal) | CPT/HCPCS: 81000; 85025; 86900 ==

== ENCOUNTER → 2022-12-28 10:55 | Outpatient (BNVA) | payer SELFPAY | PROVIDERS: Visit Provider Obstetrics & Gynecology | DX: O09.899 Supervision of other high risk pregnancies, unspecified trimester (principal) | CPT/HCPCS: 81000 ==

== ENCOUNTER → 2023-01-10 08:41 | Outpatient (BNVA) | payer SELFPAY | PROVIDERS: Visit Provider Obstetrics & Gynecology | DX: O09.899 Supervision of other high risk pregnancies, unspecified trimester (principal) | CPT/HCPCS: 81000 ==

== ENCOUNTER → 2023-01-24 11:00 | Outpatient (BNVA) | payer SELFPAY | PROVIDERS: Visit Provider Obstetrics & Gynecology | DX: O09.899 Supervision of other high risk pregnancies, unspecified trimester (principal) | CPT/HCPCS: 81000 ==

== ENCOUNTER → 2023-02-08 09:40 | Outpatient (BNVA) | payer SELFPAY | PROVIDERS: PCP Obstetrics & Gynecology; Visit Provider Nurse Practitioner Women's Health | DX: O09.899 Supervision of other high risk pregnancies, unspecified trimester (principal) | CPT/HCPCS: 81000; 87081 ==

== ENCOUNTER → 2023-02-14 10:37 | Outpatient (BNVA) | payer SELFPAY | PROVIDERS: PCP Obstetrics & Gynecology; Visit Provider Obstetrics & Gynecology | DX: O09.899 Supervision of other high risk pregnancies, unspecified trimester (principal) | CPT/HCPCS: 81000 ==

== ENCOUNTER → 2023-02-21 11:55 | Outpatient (BNVA) | payer SELFPAY | PROVIDERS: PCP Obstetrics & Gynecology; Visit Provider Obstetrics & Gynecology | DX: O09.899 Supervision of other high risk pregnancies, unspecified trimester (principal) | CPT/HCPCS: 76816; 81000 ==

== ENCOUNTER 2023-02-25 05:35 | Inpatient (IN) | payer SELFPAY ==
[2023-02-25] VITALS (35 sets, daily range): BP systolic 97–114; BP diastolic 58–73; PULSE 60–87; RESP 15–18; TEMP 35.8–36.7; O2SAT 98–100; BMI 48.2
[2023-02-25] MEDS: lactated ringers 1,000 ML 999 ML IV (06:18)
[2023-02-25 06:22] LABS: Basophils % 0.4 %; Eosinophils # 0.2 10^3/uL (0.0-0.8); Eosinophils % 2.4 %; Hematocrit 35.8 % (36-47); Lymphocytes # 1.5 10^3/uL (0.8-4.8); Lymphocytes % 22.4 %; Mean Corpuscular HGB Conc 33.8 g/dL (30-55); Mean Corpuscular Hemoglobin 30.1 pg (27-33); Mean Corpuscular Volume 89.1 fl (85-98); Mean Platelet Volume 9.8 fL (7.4-10.4); Monocytes # 0.5 10^3/uL (0.2-0.9); Monocytes % 7.7 %; Neutrophils # 4.48 10^3/uL (1.8-7.7); Neutrophils % 66.8 %; Nucleated Red Blood Cells % 0 %; Platelet Count 187 10^3/cmm (157-399); Red Blood Count 4.02 10^6/uL (3.85-5.65); Red Cell Distribution Width 13.8 % (12.1-15.1); White Blood Count 6.71 10^3/uL (3.29-11.43)
[2023-02-25] MEDS: ceFAZolin 2,000 MG in sodium chloride 0.9% (plus) 50 ML 100 MG IV (06:25)
[2023-02-25] MEDS: metoclopramide 5 mg/mL SDV 2 mL 10 MG IVP (06:36)
[2023-02-25] MEDS: famotidine 20 mg/2 mL INJ IVP (06:37)
[2023-02-25] MEDS: citric acid-sodium citrate 30 mL UDC PO (06:37)
--- NOTE | 2023-02-25 06:42 | PM.OPHPUD ---
Labor & Delivery H&P Update Date of Procedure: February 25, 2023 Date H&P Performed: 02/21/23 H&P update information: I have reviewed H&P completed within last 30 days, I have examined patient prior to procedure and No changes to prior documentation Admission Diagnosis:
--- NOTE | 2023-02-25 08:43 | PM.OP ---
Operative Report Date of procedure: February 25, 2023 Pre-op diagnosis: Term Previous delivery x5 Obesity Rh- Post-op diagnosis: Same Post-op findings: Uterus with a thin window Procedure done: Repeat delivery Specimens removed/disposition: Placenta was discarded. Surgeon: Vaughn Honeycutt MD Estimated blood loss (mL): 800 IV fluids (mL): 2,000 Urine output (mL): 600 Complications: Upon entry into abdominal cavity uterus noticed with thin window at the uterine scar almost about to rupture Procedure: After assuring informed consent, the patient was taken to the operating room and anesthesia was initiated. She was placed in the dorsal supine position with a left lateral tilt. The abdomen was prepped and draped in the usual sterile manner. A time-out procedure was performed. Preop antibiotics was administered. A Pfannenstiel skin incision was made with the scalpel and carried through to the underlying layer of fascia with the Bovie. The fascia was nicked in the midline and the incision extended laterally with the Brownlee scissors. The superior aspect of the fascial incision was then grasped with Juan Antonio clamps and elevated and the underlying rectus muscle dissected off bluntly [and sharp with brownlee scissors dense adhesions]. Attention was then turned to the inferior aspect of the incision which, in similar fashion, was grasped and tented up with Juan Antonio clamps and the rectus muscle dissected bluntly. The rectus muscles were then in the midline and the peritoneum identified, tented up and entered sharply with Metzenbaum scissors. The peritoneal incision was then extended superiorly and inferiorly with good visualization of the bladder. The Anatoliy O retractor was then inserted and the vesicouterine peritoneum identified, grasped with pickups and entered sharply with Metzenbaum scissors. This incision was then extended laterally and the bladder flap created digitally. The uterus noted with a thin window which incised in a low transverse fashion with the scalpel. The uterine incision was then extended bluntly. The was then delivered in the cephalic presentation atraumatically vaccum assited. The nose and the mouth were suctioned with bulb and the cord clamped and cut. The cord was normal and had three vessels. Amniotic fluid was clear. The placenta was then removed manually and the uterus exteriorized and cleared of all clots and debris. The uterine incision was repaired with 0 Vicryl in a running-locked fashion. A second layer of the same suture was used to obtain excellent hemostasis. The gutters were cleared of all clots. The uterus was then returned to the abdomen. The rectus muscles were approximated with 3-0 chromic gut. The fascia was reapproximated with 0 Vicryl in an interrupted running fashion. The adipose layer was infiltrated with Exparel for pain management. The skin was closed with Insorb?s subcuticular absorbable yazmin. The patient tolerated the procedure well. The sponge, lap and needle counts were correct times three.
[2023-02-25] MEDS: oxytocin 30 UNIT/500 ML BAG 600 UNIT IV (09:28)
[2023-02-25] MEDS: dextrose 5%-lactated ringers 1,000 ML 125 ML IV ×2 (09:36→18:15)
[2023-02-25] MEDS: ketorolac 30 mg/mL INJ IVP ×2 (09:37→15:14)
[2023-02-25] MEDS: sodium chloride 0.9% 500 ML 999 ML IV (13:58)
[2023-02-25] MEDS: docusate sodium 100 mg Capsule PO (18:15)
[2023-02-26] VITALS (8 sets, daily range): BP systolic 111–118; BP diastolic 65–70; PULSE 75–90; RESP 18; TEMP 35.8–36.8
[2023-02-26 04:06] LABS: Hematocrit 34.2 % (36-47); Mean Corpuscular HGB Conc 33.3 g/dL (30-55); Mean Corpuscular Hemoglobin 29.8 pg (27-33); Mean Corpuscular Volume 89.5 fl (85-98); Mean Platelet Volume 9.3 fL (7.4-10.4); Platelet Count 174 10^3/cmm (157-399); Red Blood Count 3.82 10^6/uL (3.85-5.65); Red Cell Distribution Width 13.8 % (12.1-15.1); White Blood Count 7.06 10^3/uL (3.29-11.43)
--- NOTE | 2023-02-26 08:06 | P.PN_ITS ---
Subjective Subjective: Ms. Rosen is a 37 year old established patient with LMP of 05/31/2022, WENCESLAO 03/07/2023 based off of LMP and consistent with 12 week sonogram status post delivery. Pain well under control. Vitals/I&O/Wt Last Vital Signs Temp 96.4 F L 02/26/23 05:14 Pulse 85 02/26/23 05:15 Resp 17 02/25/23 09:00 BP 118/68 02/26/23 05:15 Pulse Ox 100 02/25/23 08:45 O2 Del Method Room Air 02/25/23 15:30 02/25/23 02/26/23 02/26/23 22:59 06:59 14:59 Intake Total 1760 / 1760 Output Total 885 / 1650 900 / 2550 Balance 875 / 110 -900 / -790 Weight last 48 hrs Weight 115.666 kg Physical Exam Narrative: GA; alert and oriented x 3 HEENT: normal Breasts: engorged Nipples - skin intact Lungs; clear to auscultation Heart: regular rhythm, no murmurs. Abd: Appropriately tender. BS+. Uterine fundus below umbilicus. No Fundal Tenderness, minimal tenderness, incision clean and dry, no redness, pain or edema.. Perineum: normal lochia. Extremities: no edema, no cyanosis, no tenderness. Urinary Catheter Management: Kelly Latex: Cath Placed During This Visit: yes, but has since been removed by the nurse Reason for Continuing Indwelling Catheter: Decision to DC Catheter Urinary Catheter Date of Insertion: 02/25/23 Urinary Catheter Time of Insertion: 07:15 Date Urinary Catheter Removed: 02/26/23 Time Urinary Catheter Discontinued: 22:35 Data 02/26/23 00:45 A&P Assessment and plan (1) Term delivered: Ms. Rosen is a 37 year old established patient with LMP of 05/31/2022, WENCESLAO 03/07/2023 based off of LMP and consistent with 12 week sonogram status post delivery. She is afebrile and hemodynamically stable postoperative day 1. Overnight observation uneventful. Tolerating diet well. Pain well under control. Ambulating without difficulty. This documentation was created by [employer] senior boiler operator software (known for inherent senior boiler operator error). Every effort was made to assure accuracy of senior boiler operator. But this EMR does not have a spell check medical dictionary. (2) S/P section: Plan Postop observation. Attestations Medical Necessity Statement*: In my professional opinion per admitting diagnosis. Coding Level of Care Code Acute Code for Chg Fwd Diagnoses Term delivered O80 S/P section Z98.891
[2023-02-27 03:05] VITALS: TEMP 36.3
[2023-02-27 03:06] VITALS: BP 109/72; PULSE 72
--- NOTE | 2023-02-27 10:18 | P.DS_ITS ---
Discharge Providers OXIDATION ENGINEER Date of Admission: 02/25/23 05:35 Date of Discharge: 02/27/23 Attending Provider at Admission: Vaughn Honeycutt MD Attending Provider at Discharge: Vaughn Honeycutt MD Primary Care Provider: Vaughn Honeycutt MD Diagnoses at Discharge Discharge Diagnosis (1) Term delivered: Status: Acute (2) S/P section: Details from hospital stay: 37-year-old female G9, P7 delivered on 02/25/2023 via repeat low transverse section of viable baby boy. Patient's postoperative course has been uncomplicated. She is ambulating, tolerating regular diet and voiding without difficulty. Patient has had a spontaneous stool. She denies headaches blurred vision, shortness of breath or chest pain. Discharge expectations have been reviewed patient verbalizes understanding. We discussed no heavy lifting, pushing or pulling, no sex douching or tampons x6 weeks. Patient is to shower daily keeping her incision clean and dry. Patient to receive RhoGAM before discharge. Patient's blood type is A- with antibody D Status: Acute Permanent problem details: Performed in [place] Information Peripartum Data: Infant Delivery Method: Physical Exam Back/Pelvis: OTHER: Abdomen?soft, nondistended. Fundus below the umbilicus and nontender. Incision clean dry and intact. Extremity: NARRATIVE EXTREMITY EXAM: Extremities?no edema, negative Homans' sign. Urinary Catheter Management: Kelly Latex: Cath Placed During This Visit: yes, but has since been removed by the nurse Reason for Continuing Indwelling Catheter: Decision to DC Catheter Urinary Catheter Date of Insertion: 02/25/23 Urinary Catheter Time of Insertion: 07:15 Date Urinary Catheter Removed: 02/26/23 Time Urinary Catheter Discontinued: 22:35 History History History 8 Term 6 0 Miscarriages/Ectopic 2 Living Children 6 Past Pregnancies Del. Date GA/Weeks Outcome Route Wt Inf Gender Labor Lgth Comp. Anesth esia Location Unknown 7 spontaneous Unknown 11 spontaneous 12/24/14 40 live - full term Vaginal 3.487 kg Female [place] 12/24/15 40 live - full term 3.77 kg Female [facility] 12/03/16 38 live - full term 3.515 kg Male [facility] 06/21/18 40 live - full term 4.026 kg Female [facility] [employer] [place] 09/27/19 39 live - full term 3.629 kg Female [place] 01/12/21 39 live - full term 3.43 kg Male Scheduled repeat spinal Delivery Date: Last Updated by: Yunior Miranda MD 1st . No D&C Delivery Date: Last Updated by: Yunior Miranda MD 2nd . No D&C Delivery Date: 12/24/14 Last Updated by: Ambreen Nance LPN reports having to use suction during delivery Delivery Date: 09/27/19 Last Updated by: Yunior Miranda MD Delivered by Dr. Miranda. No complications Discharge Data Studies Completed and Pending Pending at discharge Category Date Time Status Antibody Identification Routine Lab 02/25/23 05:50 Results Complete Crossmatch Routine Lab 02/25/23 05:50 Results Rho D Immune Globulin Routine Lab 02/25/23 05:50 Results Type and Screen Routine Lab 02/25/23 05:50 Results Laboratory Results WBC 7.06 10^3/uL (3.29-11.43) 02/26/23 00:45 RBC 3.82 10^6/uL (3.85-5.65) L 02/26/23 00:45 Hgb 11.40 g/dL (11.27-16.99) 02/26/23 00:45 Hct 34.2 % (36-47) L 02/26/23 00:45 MCV 89.5 fl (85-98) 02/26/23 00:45 MCH 29.8 pg (27-33) 02/26/23 00:45 MCHC 33.3 g/dL (30-55) 02/26/23 00:45 RDW 13.8 % (12.1-15.1) 02/26/23 00:45 Plt Count 174 10^3/cmm (157-399) 02/26/23 00:45 MPV 9.3 fL (7.4-10.4) 02/26/23 00:45 Neut % (Auto) 66.8 % 02/25/23 05:50 Lymph % (Auto) 22.4 % 02/25/23 05:50 [place] % (Auto) 7.7 % 02/25/23 05:50 Eos % (Auto) 2.4 % 02/25/23 05:50 Baso % (Auto) 0.4 % 02/25/23 05:50 Neut # (Auto) 4.48 10^3/uL (1.8-7.7) 02/25/23 05:50 Lymph # (Auto) 1.5 10^3/uL (0.8-4.8) 02/25/23 05:50 [place] # (Auto) 0.5 10^3/uL (0.2-0.9) 02/25/23 05:50 Eos # (Auto) 0.2 10^3/uL (0.0-0.8) 02/25/23 05:50 Baso # (Auto) 0.0 10^3/uL (0.0-0.1) 02/25/23 05:50 Nucleated RBC % (auto) 0 % 02/25/23 05:50 Nucleated RBCs # 0.0 /100WBC 02/25/23 05:50 Blood Type A Negative 02/25/23 05:50 Rho(D) Type Negative 02/25/23 05:50 Antibody Screen Positive 02/25/23 05:50 Antibody Identification Anti-D 02/25/23 05:50 Screen Negative (Negative) 02/26/23 00:45 Vitals Last Vital Signs Temp 97.3 F L 02/27/23 03:05 Pulse 72 02/27/23 03:06 Resp 18 02/26/23 15:33 BP 109/72 02/27/23 03:06 Pulse Ox 100 02/25/23 08:45 O2 Del Method Room Air 02/26/23 15:33 Discharge Plan Discharge Patient Disposition: Home Condition: Stable Prescriptions: Continued prenat.vits,freddie,wpd-movl-mrgse Tablet 1 tab PO DAILY Discharge Orders: Discharge Order (Routine); Ordered 02/27/23 Ordered By: Yulissa Renee Referrals: Vaughn Honeycutt MD [Primary Care Provider] - 03/10/23 10:00 am (Your 2 week follow up appt with Carly Escalante will be on 03/10/23 at 10:00am Your 6 week follow up appt with Dr Honeycutt will be on 04/08/23 at 11:00am ) Discharge Activity: Increase activity as tolerated Patient Instructions: Opioid Safety Activity Restrictions/Additional Instructions: Reviewed with nursing staff present, no heavy lifting pushing pulling no sex douching or tampons x6 weeks. Patient is to continue healthy high-fiber diet with increased fluids. Patient is to shower daily keeping incision clean and dry. Patient is breast-feeding therefore encourage continuation of vitamins which she has at home. Assessment: S/p repeat low transverse section with delivery of a viable baby boy Plan of Treatment: DC to home today patient to follow-up with Dr. Honeycutt in 2 weeks. Discharge Attestations OXIDATION ENGINEER Time Spent in Discharge Care*: less than 30 min Coding Level of Care Code Acute Code for Chg Fwd Diagnoses Term delivered O80 S/P section Z98.891
[2023-02-27 11:39] VITALS: BP 123/80; PULSE 72; RESP 16; TEMP 36.6
[2023-02-27 12:00] VITALS: BP 123/80; PULSE 72; RESP 16; TEMP 36.6
== END 2023-02-27 12:30 | disposition home or self-care (01) | DRG 787 ==
PROVIDERS: Admitting Provider Obstetrics & Gynecology; PCP Obstetrics & Gynecology; Visit Provider Obstetrics & Gynecology
DX: O34.211 Maternal care for low transverse scar from previous cesarean delivery (principal); O36.0130 Maternal care for anti-D [Rh] antibodies, third trimester, not applicable or unspecified; N85.8 Other specified noninflammatory disorders of uterus; O99.214 Obesity complicating childbirth; E66.9 Obesity, unspecified; Z37.0 Single live birth; Z3A.39 39 weeks gestation of pregnancy
CPT/HCPCS: 36415; 36430; 51702; 59025; 80503; 85025; 85027; 85460; 86850; 86870; 86900; 90384; C9290; J0690; J1885; J2274; J2590; J2765; J3490; J7040; J7120; J7121

== ENCOUNTER → 2023-03-11 08:45 | Outpatient (BNVA) | payer SELFPAY | PROVIDERS: PCP Obstetrics & Gynecology; Visit Provider Nurse Practitioner Women's Health | DX: R30.0 Dysuria (principal) | CPT/HCPCS: 81000; 87077; 87086; 87184 ==